=== PATIENT | male | born 1965 | race Caucasian/White ===

== ENCOUNTER 2017-01-12 20:41 | Emergency (ER) | payer MEDICARE ==
[~2017-01-12] VITALS: Ht 172.7 cm; Wt 65.0 kg
[~2017-01-12 20:41] MED LIST: HYDR-2768 PO; WELL150T PO
[2017-01-12 20:44] VITALS: BP 227/124; PULSE 79; RESP 16; TEMP 98.7; O2SAT 98
[2017-01-12] MEDS ORDERED: HYDR25TA5 PO (22:12)
[2017-01-12] MEDS ORDERED: DIVA500T3 PO (22:12)
[2017-01-12] MEDS ORDERED: BUPR150T5 PO (22:12)
[2017-01-12] MEDS ORDERED: AMLO10TA2 PO (22:12)
--- NOTE | 2017-01-12 22:37 | PD ---
HPI Chief Complaint: Eye Problems/Injury Time Seen by Provider: 22:31 Travel History International Travel<30 days: No Contact w/Intl Traveler<30days: No Traveled to known affect area: No History of Present Illness HPI 51-year-old white male presents to emergency department accompanied by his significant other for evaluation of right eye pain. He does wear glasses. He was outside in the yard sitting at a picnic table last evening when he felt something in his right eye. Since then he has had foreign body sensation, tearing and pain. He has had slight blurred vision due to tearing. He denies any diplopia, itching, burning, mucoid drainage. The patient has been applying ice pack without relief. Patient has had no recent illness. [facility] Past Medical History Narrative Medical Anxiety, depression, hypertension Anxiety: Yes Depression: Yes Heart Rhythm Problems: No Cardiac Catheterization: No Cardiovascular Problems: Yes High Cholesterol: No Congestive Heart Failure: No Diabetes: No Diminished Hearing: No Hypertension: Yes Seizures: Yes Tetanus Vaccination: < 5 Years Past Surgical History Appendectomy: Yes Coronary Artery Bypass Graft: No Other Surgery: Yes (spinal fusion) Family History Family Myocardial Infarction: Yes (BROTHER) Social History Alcohol Use: No Tobacco Use: Yes (1 PPD) Substance Use: No Allergies-Medications (Allergen,Severity, Reaction): Coded Allergies: Penicillin (Verified Allergy, Severe, 01/12/17) Reported Meds & Prescriptions Reported Meds & Active Scripts Active Lisinopril 10 Mg Tab 10 Mg PO DAILY Reported Amlodipine (Amlodipine Besylate) 10 Mg Tab 10 Mg PO DAILY Bupropion HCl ER 12 HR (Bupropion HCl) 150 Mg Tab 150 Mg PO BID Hydrochlorothiazide 25 Mg Tab 25 Mg PO DAILY Divalproex ER (Divalproex Sodium) 500 Mg Tab 1,000 Mg PO HS Review of Systems General / Constitutional: No: Fever, Chills Eyes: Positive: Blurred Vision, Redness, Foreign Body Sensation, Pain, Tearing , Visual changes, No: Diploplia, Photophobia, Blind Spots, Blindness Physical Exam Narrative GENERAL: Well-developed, well-nourished in no acute distress. Nontoxic appearing. Vision is 20/20 in the right eye 20/20 in the left eye with glasses HEAD: Normocephalic, atraumatic. EYES: Pupils equal round and reactive. Extraocular motions intact. No scleral icterus. No injection or drainage in the left eye. The right eye is injected. There is clear tearing. Alcaine is instilled in the right eye. Lids are flipped and no foreign body seen. Fluorescein stain reveals a slight uptake at the 12:00 hour. Lids are reevaluated a second time with fluorescein and no foreign body seen. Alcaine is instilled in the left eye. Ocular pressures is 12 in the left eye and 17 in the right eye. Visual acuity 20/20. Funduscopic exam reveals sharp disc bilaterally. ENT: TMs clear without erythema. The external auditory canals clear. Nose: clear . Posterior pharynx is pink and moist. No tonsillar edema or exudate. Uvula midline. Airway patent. NECK: Trachea midline.Supple, nontender, moves head freely. No central bony tenderness or spasm. CARDIOVASCULAR: Regular rate and rhythm without murmurs, gallops, or rubs. RESPIRATORY: Clear to auscultation. Breath sounds equal bilaterally. No wheezes , rales, or rhonchi. GASTROINTESTINAL: Abdomen soft, non-tender, nondistended. No hepato-splenomegaly , or palpable masses. No guarding. EXTREMITIES: No clubbing, cyanosis, or edema. No joint tenderness, effusion, or edema noted. BACK: Nontender without deformity or crepitance. No flank tenderness. Data Data Last Documented VS Vital Signs Date Time Temp Pulse Resp B/P Pulse Ox O2 Delivery O2 Flow Rate FiO2 01/12/17 22:39 220/122 01/12/17 20:44 98.7 79 16 98 Room Air Orders Clonidine (Catapres) (01/12/17 22:45) [facility] Medical Decision Making Medical Screen Exam Complete: Yes Emergency Medical Condition: Yes Medical Record Reviewed: Yes Differential Diagnosis MDM: High Differential diagnoses: Acute conjunctivitis (bacterial, viral, allergic, traumatic), glaucoma, iritis, traumatic globe injury, foreign body, corneal abrasion, corneal ulcer, diabetic retinopathy, photokeratitis, herpes keratitis , CMV retinitis Narrative Course The patient I suspect may have had a foreign body earlier which was resolved by the patient. He now has a slight abrasion on the eye at the 12:00 hour. He has no visual changes here. His vision is 20/20. He is advised to continue palliative care with Tylenol and ibuprofen. No eye rubbing. He can follow-up with an eye doctor in next 1-2 days for recheck. It was noted that the patient' s blood pressure was quite high when he came in. He is given clonidine 0.2 mg by mouth along with a prescription for lisinopril 10 mg to take along with his medications. He is advised to check his blood pressure daily. This is right eye pain, corneal abrasion, hypertension Diagnosis Primary Impression: Acute right eye pain Additional Impressions: Corneal abrasion Qualified Code: S05.01XA - Corneal abrasion, right, initial encounter Hypertension Qualified Code: I10 - Essential hypertension Patient Instructions: General Instructions Additional Instructions: Rest. Wash eyelashes with baby shampoo 3 times daily. Cool compresses. No eye rubbing.. Check blood pressure daily. Follow-up with your doctor on Sunday. Followup with an eye doctor in 1-2 days Return to the ER if any problems. Med/Other Pt SpecificInfo: Prescription(s) given Scripts Lisinopril 10 Mg Tab10 Mg PO DAILY #30 TAB Ref 0 Prov:Archie Loco MD 01/12/17 Disposition: 01 DISCHARGE HOME Condition: Stable Rainer [place]rett Jan 12, 2017 22:37
[2017-01-12 22:39] VITALS: BP 220/122
[2017-01-12] MEDS ORDERED: LISI10TA3 PO (22:40)
[2017-01-12] MEDS ORDERED: cloNIDine HCL 0.2 MG TAB PO ONE (22:45)
[2017-01-12 23:25] VITALS: BP 198/120
== END 2017-01-12 23:34 | disposition home or self-care (01) ==
LOC: NEPD 20:41
DX: H57.11 Ocular pain, right eye (principal); S05.01XA Injury of conjunctiva and corneal abrasion without foreign body, right eye, initial encounter; I10 Essential (primary) hypertension; F17.210 Nicotine dependence, cigarettes, uncomplicated; X58.XXXA Exposure to other specified factors, initial encounter; Z88.0 Allergy status to penicillin
CPT/HCPCS: 99283